=== PATIENT | female | born 1945 | race Caucasian/White ===

== ENCOUNTER 2016-06-27 14:28 | Emergency (ER) | payer MEDICARE, OTHER ==
[~2016-06-27] VITALS: Ht 154.9 cm; Wt 67.0 kg
[~2016-06-27 14:28] MED LIST: ASPI-664 PO; ATOR40TA21 PO; FENO54TA PO; GLIP-95 PO; INSU300I SQ; LINA5TAB PO; LISI40TA9 PO; METH10TA5 PO; METO50TA16 PO; MTF1000T PO; PRAS10TA6 PO; SPIR1TAB PO
[2016-06-27 14:53] VITALS: Ht 154.9 cm; Wt 67.0 kg
[2016-06-27] MEDS ORDERED: ACETAMINOPHEN 325 MG TAB PO ONE (15:30)
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
--- NOTE | 2016-06-27 16:30 | RADRPT ---
PROCEDURE: Shoulder x-ray CLINICAL INDICATION: Pain TECHNIQUE: Right shoulder 3 views COMPARISON: None FINDINGS: 3 views of the right shoulder demonstrate no displaced fracture. The humeral head articulates anato mically with the glenoid fossa. The acromioclavicular articulation is within normal limits. Bones are normally mineralized. Soft tissues are unremarkable. IMPRESSION: No acute fracture dislocation No significant degenerate change RPTAT: HH .Javier Kennedy MD, MD Date Time Electronically viewed and signed by .Javier Kennedy MD, on 06/27/2016 16:29 .W/
[2016-06-27] MEDS ORDERED: ACET500C5 PO (16:47)
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
== END 2016-06-27 17:13 | disposition home or self-care (01) ==
LOC: FTE 14:28
DX: R51 Headache (principal); M54.2 Cervicalgia; M25.511 Pain in right shoulder; E11.9 Type 2 diabetes mellitus without complications; E03.9 Hypothyroidism, unspecified; Z04.1 Encounter for examination and observation following transport accident; Z79.4 Long term (current) use of insulin; Z87.891 Personal history of nicotine dependence; Z98.61 Coronary angioplasty status; Z79.82 Long term (current) use of aspirin; Z79.84 Long term (current) use of oral hypoglycemic drugs
CPT/HCPCS: 70450; 72125